=== PATIENT | female | born 1975 | race Caucasian/White ===

== ENCOUNTER 2016-12-28 13:08 | Emergency (ER) | payer MEDICAID ==
[2014-06-24 10:55] VITALS: BMI 34.9
[~2016-12-28 13:08] MED LIST: AMBIEN10 MG PO; BACTRIM DS TABL1 TAB PO; CELEXA20 MG PO; CELEXA40 MG PO; HYDROCODON-ACE1 EAC7 PO; LISINOPRIL10 MG PO; MOBIC7.5 MG; MOBIC7.5 MG PO; ZANAFLEX4 MG PO
== END 2016-12-28 19:06 | disposition home or self-care (01) ==
LOC: D.ER 13:08
DX: S70.02XA Contusion of left hip, initial encounter (principal); W19.XXXA Unspecified fall, initial encounter; Y93.89 Activity, other specified; Y92.89 Other specified places as the place of occurrence of the external cause; I10 Essential (primary) hypertension; F17.200 Nicotine dependence, unspecified, uncomplicated

== ENCOUNTER 2017-07-29 13:43 | Emergency (ER) | payer MEDICAID ==
[2014-06-24 10:55] VITALS: BMI 34.9
== END 2017-07-29 17:19 | disposition left against medical advice (07) ==
LOC: D.ER 13:43
DX: R06.00 Dyspnea, unspecified (principal)

== ENCOUNTER 2017-08-24 18:58 | Emergency (ER) | payer MEDICAID ==
[2014-06-24 10:55] VITALS: BMI 34.9
== END 2017-08-24 21:00 | disposition home or self-care (01) ==
LOC: D.ER 18:58
DX: K02.9 Dental caries, unspecified (principal); K08.89 Other specified disorders of teeth and supporting structures

== ENCOUNTER 2017-11-03 09:07 | Emergency (ER) | payer MEDICAID ==
[~2017-11-03] VITALS: Ht 165.1 cm; Wt 90.9 kg
[2017-11-03 09:23] VITALS: Ht 165.1 cm; Wt 90.9 kg
[2017-11-03] MEDS ORDERED: VALIUM 2 MG TAB2 MG PO (10:52)
[2017-11-03] MEDS ORDERED: TYLENOL W/CODEI1 TAB PO (10:52)
[2017-11-03 11:04] VITALS: BP 130/88
== END 2017-11-03 11:03 | disposition home or self-care (01) ==
LOC: D.ER 09:07
DX: S39.012A Strain of muscle, fascia and tendon of lower back, initial encounter (principal); W10.9XXA Fall (on) (from) unspecified stairs and steps, initial encounter; Y93.89 Activity, other specified; Y92.89 Other specified places as the place of occurrence of the external cause; S70.12XA Contusion of left thigh, initial encounter; S70.11XA Contusion of right thigh, initial encounter; F17.200 Nicotine dependence, unspecified, uncomplicated

== ENCOUNTER 2018-04-06 19:05 | Emergency (ER) | payer MEDICAID ==
[~2018-04-06] VITALS: Ht 165.1 cm; Wt 77.3 kg
[~2018-04-06 19:05] MED LIST changes: +TYLENOL W/CODEI1 TAB PO; +VALIUM 2 MG TAB2 MG PO
[2018-04-06 19:13] VITALS: Ht 165.1 cm; Wt 77.3 kg
[2018-04-06 20:13] LABS: BASOPHILS 0.9 % (0-2); EOSINOPHILS 3.1 % (0-7); HEMATOCRIT 39.1 % (36.0-48.0); HEMOGLOBIN 12.8 g/dL (12-16); IMMATURE GRANULOCYTES 0.2 % (0-5); LYMPHOCYTES 18.5 % (15-50); MCH 29.4 pg (26.0-34.0); MCHC 32.7 g/dL (31.0-37.0); MCV 89.7 fL (80.0-100.0); MEAN PLATELET VOLUME 10.2 fL (7.4-10.4); MONOCYTES 8.3 % (2-11); PLATELET COUNT 360 10x3/uL (130-400); RBC 4.36 10x6/uL (4.00-5.40); RDW 14.6 % (11.5-14.5); WBC 11.8 10x3/uL (4.8-10.8)
[2018-04-06 20:29] LABS: ALBUMIN 3.6 g/dL (3.4-5.0); ALKALINE PHOSPHATASE 73 U/L (46-116); ALT (SGPT) 28 U/L (10-68); BILIRUBIN - TOTAL 0.35 mg/dL (0.2-1.3); CALC OSMOLALITY 280 mosm/kg (275-300); CARBON DIOXIDE 27.9 mmol/L (21.0-32.0); CHLORIDE - SERUM 103 mmol/L (98-107); CREATININE - SERUM 0.8 mg/dL (0.6-1.3); GLUCOSE 82 mg/dL (74-106); POTASSIUM - SERUM 3.6 mmol/L (3.5-5.1); PROTEIN - SERUM 7.5 g/dL (6.4-8.2); SODIUM 141 mmol/L (136-145); UREA NITROGEN 14 mg/dL (7-18); eGFR NON AFRICAN AMERICAN 84 mL/min (90-120)
[2018-04-06 20:38] LABS: CREATINE KINASE 170 UL (21-215); PRO BNP 59 pg/mL (0-125)
[2018-04-06 21:41] LABS: UDS - AMPHET POSITIVE QUAL (NEGATIVE); UDS - BARB NEGATIVE QUAL (NEGATIVE); UDS - BENZO NEGATIVE QUAL (NEGATIVE); UDS - COCAINE NEGATIVE QUAL (NEGATIVE); UDS - OPIATE NEGATIVE QUAL (NEGATIVE); UDS - PCP NEGATIVE QUAL (NEGATIVE); UDS - THC POSITIVE QUAL (NEGATIVE)
[2018-04-06 21:51] LABS: APPEARANCE CLEAR (CLEAR); BILIRUBIN NEGATIVE (NEGATIVE); COLOR YELLOW (YELLOW); GLUCOSE NEGATIVE (NEGATIVE); KETONE NEGATIVE (NEGATIVE); NITRITE NEGATIVE (NEGATIVE); PROTEIN NEGATIVE (NEGATIVE); SPECIFIC GRAVITY 1.025 (1.005-1.020); UROBILINOGEN NORMAL (NORMAL)
[2018-04-06 21:55] LABS: BACTERIA MODERATE /hpf (NONE SEEN); EPITHELIAL CELLS 0-5 /hpf (0-5); RED CELLS - URINE OCC /hpf (0-5); WHITE CELLS - URINE 0-5 /hpf (0-5)
[2018-04-06 22:33] LABS: HCG URINE NEGATIVE (NEGATIVE)
[2018-04-07] MEDS ORDERED: NORCO 7.5/325 T1 TA1 PO (00:22)
[2018-04-07 00:45] VITALS: BP 91/63
== END 2018-04-07 00:46 | disposition home or self-care (01) ==
LOC: D.ER 19:05
PROVIDERS: Family Medicine
DX: S62.91XA Unspecified fracture of right hand, initial encounter for closed fracture (principal); Y04.2XXA Assault by strike against or bumped into by another person, initial encounter; Y93.89 Activity, other specified; Y92.019 Unspecified place in single-family (private) house as the place of occurrence of the external cause; T14.8XXA Other injury of unspecified body region, initial encounter; M54.2 Cervicalgia; R07.89 Other chest pain; F17.200 Nicotine dependence, unspecified, uncomplicated

== ENCOUNTER 2018-11-24 13:28 | Emergency (ER) | payer SELFPAY ==
[~2018-11-24] VITALS: Ht 165.1 cm; Wt 90.9 kg
[~2018-11-24 13:28] MED LIST changes: +NORCO 7.5/325 T1 TA1 PO
[2018-11-24 13:30] VITALS: Ht 165.1 cm; Wt 90.9 kg
[2018-11-24] MEDS ORDERED: TOPAMAX50 MG PO (13:59)
[2018-11-24] MEDS ORDERED: KLONOPIN1 MG PO (13:59)
[2018-11-24] MEDS ORDERED: SEROQUEL300 MG PO (13:59)
[2018-11-24] MEDS ORDERED: ADDERALL 30 MG30 MG PO (14:00)
[2018-11-24] MEDS ORDERED: AMBIEN5 MG PO (14:00)
[2018-11-24 15:17] LABS: BASOPHILS 0.8 % (0-2); EOSINOPHILS 2.7 % (0-7); HEMATOCRIT 43.5 % (36.0-48.0); HEMOGLOBIN 14.6 g/dL (12-16); IMMATURE GRANULOCYTES 0.1 % (0-5); LYMPHOCYTES 14.1 % (15-50); MCH 28.5 pg (26.0-34.0); MCHC 33.6 g/dL (31.0-37.0); MEAN PLATELET VOLUME 10.3 fL (7.4-10.4); MONOCYTES 5.1 % (2-11); NEUTROPHILS 77.2 % (40-80); RBC 5.12 10x6/uL (4.00-5.40); RDW 15.2 % (11.5-14.5); WBC 10.7 10x3/uL (4.8-10.8)
[2018-11-24 15:19] LABS: PLATELET COUNT 257 10x3/uL (130-400)
[2018-11-24 15:42] LABS: APPEARANCE CLEAR (CLEAR); COLOR YELLOW (YELLOW)
[2018-11-24 15:43] LABS: BILIRUBIN NEGATIVE (NEGATIVE); GLUCOSE NEGATIVE (NEGATIVE); KETONE NEGATIVE (NEGATIVE); NITRITE NEGATIVE (NEGATIVE); PROTEIN NEGATIVE (NEGATIVE); UROBILINOGEN NORMAL (NORMAL)
[2018-11-24 15:44] LABS: UDS - AMPHET POSITIVE QUAL (NEGATIVE); UDS - BARB NEGATIVE QUAL (NEGATIVE); UDS - BENZO NEGATIVE QUAL (NEGATIVE); UDS - COCAINE NEGATIVE QUAL (NEGATIVE); UDS - OPIATE NEGATIVE QUAL (NEGATIVE); UDS - PCP NEGATIVE QUAL (NEGATIVE); UDS - THC POSITIVE QUAL (NEGATIVE); WHITE CELLS - URINE 0-5 /hpf (0-5)
[2018-11-24 15:45] LABS: BACTERIA MODERATE /hpf (NONE SEEN); EPITHELIAL CELLS 0-5 /hpf (0-5); RED CELLS - URINE OCC /hpf (0-5)
[2018-11-24 15:55] LABS: ALBUMIN 4.3 g/dL (3.4-5.0); ALKALINE PHOSPHATASE 89 U/L (46-116); ALT (SGPT) 26 U/L (10-68); BILIRUBIN - TOTAL 0.23 mg/dL (0.2-1.3); CALC OSMOLALITY 263 mosm/kg (275-300); CALCIUM 9.3 mg/dL (8.5-10.1); CARBON DIOXIDE 23.3 mmol/L (21.0-32.0); CHLORIDE - SERUM 102 mmol/L (98-107); CREATININE - SERUM 0.8 mg/dL (0.6-1.3); GLUCOSE 92 mg/dL (74-106); POTASSIUM - SERUM 3.6 mmol/L (3.5-5.1); PROTEIN - SERUM 8.4 g/dL (6.4-8.2); SODIUM 131 mmol/L (136-145); UREA NITROGEN 14 mg/dL (7-18); eGFR NON AFRICAN AMERICAN 84 mL/min (90-120)
[2018-11-24 16:07] LABS: HCG SERUM NEGATIVE (NEGATIVE)
[2018-11-24 16:14] LABS: CREATINE KINASE 303 UL (21-215)
[2018-11-24 16:18] LABS: CKMB 3.9 U/L (0.0-3.6)
--- NOTE | 2018-11-24 16:40 | NUR ---
DR. CANTOR NOTIFIED AND 1:1 SITTER OBSERVATION ORDERED. SITTER AT BEDSIDE. NOTIFIED CHARGE NURSE AND ATTENDING IN REGARDS TO ASSESSMENT FINDINGS. RESOURCES GIVEN TO PT AND SAFETY PLAN INITIATED.
[2018-11-24] MEDS ORDERED: CLEOCIN HCL300 MG PO (18:11)
[2018-11-24] MEDS ORDERED: SEROQUEL100 MG PO (22:10)
[2018-11-24 23:10] VITALS: BP 132/73
[2018-11-25 08:16] LABS: HEPATITIS C ANTIBODY <0.1 S/CO RAT (0.0-0.9)
[2018-11-26 20:07] LABS: CHLAMYDIA TRACHOMATIS, NAA Negative (Negative)
== END 2018-11-24 23:11 | disposition home or self-care (01) ==
LOC: D.ER 13:28
PROVIDERS: Family Medicine
DX: L03.90 Cellulitis, unspecified (principal); T76.21XA Adult sexual abuse, suspected, initial encounter; R45.850 Homicidal ideations; R45.851 Suicidal ideations; M32.9 Systemic lupus erythematosus, unspecified